=== PATIENT | female | born 1960 | race Two or more races ===

== ENCOUNTER → 2023-08-02 | Outpatient (BNVA) | payer MEDICAID, SELFPAY | END | disposition home or self-care (01) | PROVIDERS: PCP Internal Medicine; Referring Provider Internal Medicine; Visit Provider Urology ==

== ENCOUNTER → 2025-09-06 | Outpatient (CLI) | payer MEDICARE, MEDICAID, SELFPAY ==
--- NOTE | 2025-09-06 13:10 | XR_ITS ---
Examination: Bone densitometry Date and time of exam: September 06, 2025, 1400 hours INDICATIONS: Menopause age 35 diabetic Technique: Lumbar spine and hip total bone mineralization values of an calculated. Peak reference and age match control results have been displayed. Findings: Lumbar spine total bone mineralization is 0.935 gm/cm2. This is 1.0 standard deviations below peak reference. This is 0.8 standard deviations above age-matched controls. Hip total bone mineralization is 1.045 gm/cm2 This is 0.6 standard deviations above peak reference. This is 1.7 standard deviations above age-matched controls Impression: There is normal mineralization based on lumbar spine measurements. There is normal mineralization based on hip measurements
== END | disposition home or self-care (01) ==
PROVIDERS: Referring Provider Nurse Practitioner; Visit Provider Nurse Practitioner
DX: M81.0 Age-related osteoporosis without current pathological fracture (principal)
CPT/HCPCS: 77080